=== PATIENT | male | born 1995 | race Caucasian/White ===

== ENCOUNTER 2023-11-22 06:55 | Inpatient (IN) | payer MEDICARE, OTHER ==
[2023-11-22] MEDS ORDERED: LORazepam 1 MG TAB PO PRN ×3 (07:07)
[2023-11-22] MEDS ORDERED: LORazepam 0.5 MG TAB PO PRN (07:07)
[2023-11-22] MEDS: SODIUM CHLORIDE 0.9% 1,000 ML IV ONE (07:12)
[2023-11-22 07:14] LABS: Basophils # (A) 0.1 k/uL (0-0.2); Basophils % (A) 1 %; Eosinophils # (A) 0.2 k/uL (0-0.7); Eosinophils % (A) 2 %; HCT 39.3 % (39.0-53.0); HGB 13.8 gm/dL (13.0-17.5); Lymphocytes # (A) 1.8 k/uL (1.0-4.8); Lymphocytes % (A) 22 %; MCH 31.6 pg (25.0-35.0); MCHC 35.1 g/dL (31.0-37.0); MCV 89.9 fL (80.0-100.0); Mean Platelet Volume 7.2; Monocytes # (A) 0.7 k/uL (0-1.0); Monocytes % (A) 8 %; Neutrophils # (A) 5.5 k/uL (1.3-7.7); Neutrophils % (A) 65 %; Platelet Count 276 k/uL (150-450); RBC 4.37 m/uL (4.30-5.90); RDW 12.1 % (11.5-15.5); WBC 8.3 k/uL (3.8-10.6)
[2023-11-22 07:34] LABS: ALT 68 U/L (4-49); AST 76 U/L (17-59); African American GFR (CKD) >90 (>60 ml/min/1.73 sqM); Albumin 4.8 g/dL (3.5-5.0); Alkaline Phosphatase 76 U/L (38-126); Anion Gap 8 mmol/L; Blood Urea Nitrogen 14 mg/dL (9-20); Calcium 9.8 mg/dL (8.4-10.2); Carbon Dioxide 23 mmol/L (22-30); Chloride 104 mmol/L (98-107); Glucose 94 mg/dL (74-99); Lipase 220 U/L (23-300); Non-African American GFR(CKD) >90 (>60 ml/min/1.73 sqM); Potassium 3.9 mmol/L (3.5-5.1); Sodium 135 mmol/L (137-145); Total Bilirubin 0.8 mg/dL (0.2-1.3); Total Protein 7.7 g/dL (6.3-8.2)
--- NOTE | 2023-11-22 07:39 | ED ---
Alcohol HPI - General Source: patient, EMS, RN notes reviewed Mode of arrival: EMS Limitations: no limitations <Goldy Curiel - Last Filed: 11/22/23 12:36> <Zuleyma Neff - Last Filed: 11/22/23 23:29> - General Chief Complaint: Alcohol Stated Complaint: detox Time Seen by Provider: 11/22/23 06:57 - History of Present Illness Initial Comments: 28-year-old male presents emergency department from [facility] for alcohol withdrawal. Patient states that he has been there for 2 days he states he started him on Ativan yesterday when she states helped minimally. Patient states he is nauseated and having some hallucinations he recently started seeing things, hearing voices. Patient patient states he has been having some shaking episodes which seem to be worsening.. Patient denies any chest pain shortness of breath fevers chills nausea vomiting currently. He has had some intermittent nausea. Patient denies any history of seizures. (Goldy Curiel) - Related Data Home Medications Medication Instructions Recorded Confirmed Acetaminophen [Tylenol] 650 mg PO Q4H PRN 11/22/23 11/22/23 Calcium/Magnesium/Zinc/Vitamin D 1 tab PO TID PRN 11/22/23 11/22/23 334/134/5mg Cariprazine HCl [Vraylar] 3 mg PO DAILY 11/22/23 11/22/23 Chlorpheniramine Maleate 4 mg PO Q4H PRN 11/22/23 11/22/23 [Chlor-Trimeton] Dicyclomine [Bentyl] 20 mg PO TID PRN 11/22/23 11/22/23 Hyoscyamine Sulfate [Levsin] 0.125 mg PO QID PRN 11/22/23 11/22/23 LORazepam [Ativan] 1 - 2 mg PO Q4H PRN 11/22/23 11/22/23 Loperamide HCl [Imodium A-D] 4 mg PO QID PRN 11/22/23 11/22/23 Mag Hydrox/Aluminum Hyd/Simeth 30 ml PO Q4H PRN 11/22/23 11/22/23 [Mylanta Maximum Strength Liq] Magnesium Hydroxide [Milk of 2,400 mg PO BID PRN 11/22/23 11/22/23 Magnesia] Melatonin 5 mg PO HS 11/22/23 11/22/23 Meloxicam [Mobic] 7.5 - 15 mg PO DAILY PRN 11/22/23 11/22/23 Mirtazapine [Remeron] 15 mg PO HS 11/22/23 11/22/23 Multivitamins, Thera [Multivitamin 1 tab PO DAILY 11/22/23 11/22/23 (formulary)] Pantoprazole [Protonix] 40 mg PO BID 11/22/23 11/22/23 Propranolol [Inderal] 20 mg PO TID PRN 11/22/23 11/22/23 Sertraline [Zoloft] 150 mg PO DAILY 11/22/23 11/22/23 Thiamine [Vitamin B-1] 100 mg PO DAILY 11/22/23 11/22/23 cloNIDine HCL [Catapres] 0.1 - 0.3 mg PO Q4H PRN 11/22/23 11/22/23 guaiFENesin [guaiFENesin Oral 200 mg PO Q4H PRN 11/22/23 11/22/23 Solution] ondansetron HCL [Zofran] 8 mg PO Q6H PRN 11/22/23 11/22/23 Allergies Allergy/AdvReac Type Severity Reaction Status Date / Time onion Allergy Anaphylaxis Verified 11/22/23 17:09 Review of Systems ROS Other: All systems not noted in ROS Statement are negative. <Goldy Curiel - Last Filed: 11/22/23 12:36> ROS Other: All systems not noted in ROS Statement are negative. <Zuleyma Neff - Last Filed: 11/22/23 23:29> ROS Statement: Those systems with pertinent positive or pertinent negative responses have been documented in the HPI. Past Medical History Past Medical History: No Reported History History of Any Multi-Drug Resistant Organisms: None Reported Additional Past Surgical History / Comment(s): Right and left hand surgery Past Psychological History: Anxiety, Depression Smoking Status: Current every day smoker Past Alcohol Use History: Daily, Heavy Past Drug Use History: Cocaine <Goldy Curiel - Last Filed: 11/22/23 12:36> General Exam Limitations: no limitations General appearance: alert, in no apparent distress Head exam: Present: atraumatic, normocephalic, normal inspection Eye exam: Present: normal appearance, PERRL, EOMI. Absent: scleral icterus, conjunctival injection, periorbital swelling ENT exam: Present: normal exam, normal oropharynx, mucous membranes moist Neck exam: Present: normal inspection, full ROM. Absent: tenderness, meningismus, lymphadenopathy Respiratory exam: Present: normal lung sounds bilaterally. Absent: respiratory distress, wheezes, rales, rhonchi, stridor Cardiovascular Exam: Present: regular rate, normal rhythm, normal heart sounds. Absent: systolic murmur, diastolic murmur, rubs, gallop, clicks GI/Abdominal exam: Present: soft, normal bowel sounds. Absent: distended, tenderness, guarding, rebound, rigid Neurological exam: Present: alert, oriented X3 Skin exam: Present: warm, dry, intact, normal color. Absent: rash <Goldy Curiel - Last Filed: 11/22/23 12:36> Course Vital Signs 11/22/23 11/22/23 06:57 08:08 Temperature 98.1 F Pulse Rate 88 86 Respiratory 18 18 Rate Blood Pressure 137/94 138/93 O2 Sat by Pulse 98 98 Oximetry Medical Decision Making - Lab Data Result diagrams: 11/22/23 07:08 11/22/23 07:08 <Goldy Curiel - Last Filed: 11/22/23 12:36> - Lab Data Result diagrams: 11/22/23 07:08 11/22/23 07:08 <Zuleyma Neff - Last Filed: 11/22/23 23:29> - Medical Decision Making Was pt. sent in by a medical professional or institution (, PA, MARKETING SUPPORT COORDINATOR, urgent care, hospital, or residential...) When possible be specific @ -[facility] Did you speak to anyone other than the patient for history (EMS, parent, family, police, friend...)? What history was obtained from this source @ -No Did you review nursing and triage notes (agree or disagree)? Why? @ -I reviewed and agree with nursing and triage notes Were old charts reviewed (outside hosp., previous admission, EMS record, old EKG, old radiological studies, urgent care reports/EKG's, residential records)? Report findings @ -No old charts were reviewed Differential Diagnosis (chest pain, altered mental status, abdominal pain women, abdominal pain men, vaginal bleeding, weakness, fever, dyspnea, syncope, headache, dizziness, GI bleed, back pain, seizure, CVA, palpatations, mental health, musculoskeletal)? @ -Alcohol intoxication, alcohol withdrawal, delirium EKG interpreted by me (3pts min.). @ -[None X-rays interpreted by me (1pt min.). @ -None done CT interpreted by me (1pt min.). @ -None done U/S interpreted by me (1pt. min.). @ -None done What testing was considered but not performed or refused? (CT, X-rays, U/S, labs)? Why? @ -None What meds were considered but not given or refused? Why? @ -None Did you discuss the management of the patient with other professionals (professionals i.e. , PA, MARKETING SUPPORT COORDINATOR, lab, RT, psych nurse, clinical social work aide, ob gyn, teacher, maritime officer, caser in)? Give summary @ -Dr. Baig for admission regarding alcohol withdrawal with delirium. Patient CIWA scale was over 30 and requested to send to ICU Case discussed with Dr. Jacobson Was smoking cessation discussed for >3mins.? @ -No Was critical care preformed (if so, how long)? @ -No Were there social determinants of health that impacted care today? How? (Homelessness, low income, unemployed, alcoholism, drug addiction, transportation, low edu. Level, literacy, decrease access to med. care, long term, rehab)? @ -No Was there de-escalation of care discussed even if they declined (Discuss DNR or withdrawal of care, Hospice)? DNR status @ -No What co-morbidities impacted this encounter? (DM, HTN, Smoking, COPD, CAD, Cancer, CVA, ARF, Chemo, Hep., AIDS, mental health diagnosis, sleep apnea, morbid obesity)? @ -[Alcohol abuse, bipolar disorder Was patient admitted / discharged? Hospital course, mention meds given and route, prescriptions, significant lab abnormalities, going to OR and other pertinent info. @ -Admitted patient been in ICU for close monitoring secondary to elevated CIWA's scale, alcohol withdrawal delirium patient has received over 10 mg of Ativan with minimal improvement of symptoms. Undiagnosed new problem with uncertain prognosis? @ -No Drug Therapy requiring intensive monitoring for toxicity (Heparin, Nitro, Insulin, Cardizem)? @ -No Were any procedures done? @ -No Diagnosis/symptom? @ -Alcohol withdrawal delirium Acute, or Chronic, or Acute on Chronic? @ -Acute Uncomplicated (without systemic symptoms) or Complicated (systemic symptoms)? @ -Complicated Side effects of treatment? @ -No Exacerbation, Progression, or Severe Exacerbation? @ -No Poses a threat to life or bodily function? How? (Chest pain, [place], [place], pneumonia, PE, COPD, DKA, ARF, appy, cholecystitis, CVA, Diverticulitis, Homicidal, Suicidal, threat to staff... and all critical care pts) @ -Yes alcohol withdrawal (Goldy Curiel) - Lab Data Lab Results 11/22/23 11/22/23 Range/Units 07:08 07:08 WBC 8.3 (3.8-10.6) k/uL RBC 4.37 (4.30-5.90) m/uL Hgb 13.8 (13.0-17.5) gm/dL Hct 39.3 (39.0-53.0) % MCV 89.9 (80.0-100.0) fL MCH 31.6 (25.0-35.0) pg MCHC 35.1 (31.0-37.0) g/dL RDW 12.1 (11.5-15.5) % Plt Count 276 (150-450) k/uL MPV 7.2 Neutrophils % 65 % Lymphocytes % 22 % Monocytes % 8 % Eosinophils % 2 % Basophils % 1 % Neutrophils # 5.5 (1.3-7.7) k/uL Lymphocytes # 1.8 (1.0-4.8) k/uL Monocytes # 0.7 (0-1.0) k/uL Eosinophils # 0.2 (0-0.7) k/uL Basophils # 0.1 (0-0.2) k/uL Sodium 135 L (137-145) mmol/L Potassium 3.9 (3.5-5.1) mmol/L Chloride 104 (98-107) mmol/L Carbon Dioxide 23 (22-30) mmol/L Anion Gap 8 mmol/L BUN 14 (9-20) mg/dL Creatinine 1.02 (0.66-1.25) mg/dL Est GFR (CKD-EPI)AfAm >90 (>60 ml/min/1.73 sqM) Est GFR (CKD-EPI)NonAf >90 (>60 ml/min/1.73 sqM) Glucose 94 (74-99) mg/dL Calcium 9.8 (8.4-10.2) mg/dL Magnesium 2.0 (1.6-2.3) mg/dL Total Bilirubin 0.8 (0.2-1.3) mg/dL AST 76 H (17-59) U/L ALT 68 H (4-49) U/L Alkaline Phosphatase 76 (38-126) U/L Total Protein 7.7 (6.3-8.2) g/dL Albumin 4.8 (3.5-5.0) g/dL Lipase 220 (23-300) U/L - EKG Data EKG Comments: EKG performed at 6: 59 sinus rhythm with a rate of 81 [place] 94 QT/QTc 388/426 (Goldy Curiel) Disposition Time of Disposition: 11:08 <Goldy Curiel - Last Filed: 11/22/23 12:36> <Zuleyma Neff - Last Filed: 11/22/23 23:29> Clinical Impression: Alcohol withdrawal delirium, Alcohol withdrawal syndrome, Bipolar disorder Disposition: ADMITTED IP TO THIS HOSP Condition: Serious
[2023-11-22] MEDS: LORazepam 2 MG/ML INJ IV STA ×3 (08:00→13:21)
[2023-11-22] MEDS: THIAMINE 200 MG in SODIUM CHLORIDE 0.9% 100 ML IVPB STA (08:02)
[2023-11-22] MEDS: SODIUM CHLORIDE 0.9% 500 ML 500 ML IV ONE (08:07)
[2023-11-22] MEDS: LORazepam 2 MG/ML INJ IV PRN ×3 (09:03→12:07)
[2023-11-22] MEDS: NICOTINE 14MG/24HR PATCH TRANSDERM STA (10:58)
[2023-11-22] MEDS ORDERED: ONDANSETRON 4 MG/2 ML VIAL IVP PRN (11:08)
[2023-11-22] MEDS ORDERED: NALOXONE 0.4 MG/ML 1 ML VIAL IV PRN (11:08)
[2023-11-22] MEDS: SODIUM CHLORIDE 0.9% 1,000 ML IV SCH (12:10)
--- NOTE | 2023-11-22 13:22 | P.HPIM ---
History of Present Illness H&P Date: 11/22/23 Patient is a 28-year-old male with a history of alcohol dependence presenting for acute alcohol withdrawal. Patient is currently agitated, unable to provide any history. Per report, patient was dropped off by his brother, last drink was approximately 2 days ago. He normally drinks a case of beer and 1/5 of liquor. Unclear if patient is a smoker. Unclear if he uses any other drugs. In the ED, temperature was 98.1, pulse 88, respiratory rate 18, blood pressure 137/94, saturating at 98% on room air. WBC 8.3, hemoglobin 13.8, sodium 135, creatinine 1.02, total bili 0.8, AST 76, ALT 68, lipase 220. EKG shows sinus rhythm with occasional PACs. Patient received a total of 2 L of normal saline, IV thiamine, up to 9 mg of IV Ativan and continues to remain agitated. ICU was consulted. Patient pending transfer to ICU on Precedex drip for delirium tremens. Pertinent positives and negatives as discussed in HPI, a complete review of systems was performed and all other systems are negative. Patient seen and examined at bedside. Vital signs reviewed General: Agitated, pacing around the room, appears at stated age Derm: No obvious rashes Head: atraumatic, normocephalic, symmetric Eyes: EOMI, no lid lag, anicteric sclera ENT: Nose and ears atraumatic Neck: No thyromegaly Mouth: no lip lesion, mucus membranes moist Cardiovascular:no edema Lungs: no accessory muscle use Abdominal: No distention Ext: no gross muscle atrophy, muscle strength muscle strength 5 out of 5 in all 4 extremities, no contractures Neuro: CN II-XII grossly intact Psych: Has delusions and hallucinations Assessment/Plan: Delirium tremens Severe alcohol withdrawal Alcohol dependence Continue IV Ativan as needed per CIWA score ICU consulted due to persistent agitation despite getting multiple doses of IV Ativan Patient started on Precedex drip Also on Librium 50 mg p.o. 3 times daily Continue thiamine oral 100 mg daily Continue telemetry monitoring History of bipolar disorder Unclear if patient is taking any medications at home Psychiatry also consulted GERD Continue home pantoprazole 40 twice daily The patient is admitted with an anticipated greater than 2 midnight stay as inpatient status for evaluation of severe alcohol withdrawal. Surrogate decision-maker: Brother CODE STATUS: Full code DVT prophylaxis: Lovenox Anticipated discharge date: Pending clinical course Anticipated discharge place: Pending clinical course A total of 55 minutes was spent on the care of this complex patient more than 50% of the time was spent in counseling and care coordination. Past Medical History Past Medical History: No Reported History History of Any Multi-Drug Resistant Organisms: None Reported Additional Past Surgical History / Comment(s): Right and left hand surgery Past Psychological History: Anxiety, Depression Smoking Status: Current every day smoker Past Alcohol Use History: Daily, Heavy Past Drug Use History: Cocaine Medications and Allergies Home Medications Medication Instructions Recorded Confirmed Type Acetaminophen [Tylenol] 650 mg PO Q4H PRN 11/22/23 11/22/23 History Calcium/Magnesium/Zinc/Vitamin D 1 tab PO TID PRN 11/22/23 11/22/23 History 334/134/5mg Cariprazine HCl [Vraylar] 3 mg PO DAILY 11/22/23 11/22/23 History Chlorpheniramine Maleate 4 mg PO Q4H PRN 11/22/23 11/22/23 History [Chlor-Trimeton] Dicyclomine [Bentyl] 20 mg PO TID PRN 11/22/23 11/22/23 History Hyoscyamine Sulfate [Levsin] 0.125 mg PO QID PRN 11/22/23 11/22/23 History LORazepam [Ativan] 1 - 2 mg PO Q4H PRN 11/22/23 11/22/23 History Loperamide HCl [Imodium A-D] 4 mg PO QID PRN 11/22/23 11/22/23 History Mag Hydrox/Aluminum Hyd/Simeth 30 ml PO Q4H PRN 11/22/23 11/22/23 History [Mylanta Maximum Strength Liq] Magnesium Hydroxide [Milk of 2,400 mg PO BID PRN 11/22/23 11/22/23 History Magnesia] Melatonin 5 mg PO HS 11/22/23 11/22/23 History Meloxicam [Mobic] 7.5 - 15 mg PO DAILY PRN 11/22/23 11/22/23 History Mirtazapine [Remeron] 15 mg PO HS 11/22/23 11/22/23 History Multivitamins, Thera [Multivitamin 1 tab PO DAILY 11/22/23 11/22/23 History (formulary)] Pantoprazole [Protonix] 40 mg PO BID 11/22/23 11/22/23 History Propranolol [Inderal] 20 mg PO TID PRN 11/22/23 11/22/23 History Sertraline [Zoloft] 150 mg PO DAILY 11/22/23 11/22/23 History Thiamine [Vitamin B-1] 100 mg PO DAILY 11/22/23 11/22/23 History cloNIDine HCL [Catapres] 0.1 - 0.3 mg PO Q4H PRN 11/22/23 11/22/23 History guaiFENesin [guaiFENesin Oral 200 mg PO Q4H PRN 11/22/23 11/22/23 History Solution] ondansetron HCL [Zofran] 8 mg PO Q6H PRN 11/22/23 11/22/23 History Allergies Allergy/AdvReac Type Severity Reaction Status Date / Time onion Allergy Unknown Verified 11/22/23 12:37 Physical Exam Vitals: Vital Signs Temp Pulse Resp BP Pulse Ox 11/22/23 08:08 86 18 138/93 98 11/22/23 06:57 98.1 F 88 18 137/94 98 Intake and Output 11/21/23 11/22/23 11/22/23 22:59 06:59 14:59 Other: Weight 75.75 kg Results CBC & Chem 7: 11/22/23 07:08 11/22/23 07:08 Labs: Abnormal Lab Results - Last 24 Hours (Table) 11/22/23 Range/Units 07:08 Sodium 135 L (137-145) mmol/L AST 76 H (17-59) U/L ALT 68 H (4-49) U/L
[2023-11-22] MEDS: DEXMEDETOMIDINE/0.9% NACL(PMX) 400 MCG in EMPTY BAG 1 BAG IV SCH (14:19)
[2023-11-22 14:21] LABS: Glucose,Whole Blood 96 mg/dL (70-110)
--- NOTE | 2023-11-22 14:32 | P.CN ---
Psychiatric Consult - . Consult date: 11/22/23 Consult:: 11/22/23 14:00 IDENTIFYING DATA: This patient is a 28-year-old male REASON FOR REFERRAL: Psychiatry was consulted for bipolar disorder HISTORY OF PRESENT ILLNESS: The patient presented to the hospital with altered mental status due to alcohol withdrawal. Patient is A&Ox1 to self and was seen in the ED today, with security compliance specialist nearby. He is responding to internal stimuli. He derails often during con versation and describes numerous bizarre delusions. He displays psychomotor agitation but is able to be redirected verbally. Patient states that his mood has been "terrible "due to battling with family and having numerous interpersonal issues. He says he has mainly been coping by drinking 2-3 cases of beer daily and sometimes a fifth of liquor in addition. His last drink was reportedly 2 days ago. He was brought in from [place] where he had gone to rehab to try to get help. Patient also endorses difficulty sleeping and says he has been only sleeping 2 hours over the past 2 months. He endorses poor appetite and low energy. He states that he has been compliant on all of his psychotropic medications and is able to recall the names. Patient denies suicidal ideation, homicidal ideation, intent or plan. He denies using other substances apart from alcohol recently but describes a history of using numerous other substances. Patient is currently elevated and further interview could not be conducted due to level of delirium. Discussed patient's case with his nurse. Nurses states that his brother was present earlier today and petition the patient. Petition reads "seeing and hearing things constantly looking for things that aren't there. Doesn't know that he is in the hospital at times and has to be reminded ". PAST PSYCHIATRIC HISTORY: Patient reports following up with [facility] for his psychiatric care. He denies history of suicide attempts or hospitalizations. Patient is currently on Vraylar 3mg daily, Remeron 15 mg qHS, and Zoloft 100 mg daily outpatient. PAST MEDICAL HISTORY: Past Medical History: No Reported History History of Any Multi-Drug Resistant Organisms: None Reported Additional Past Surgical History / Comment(s): Right and left hand surgery Past Psychological History: Anxiety, Depression Smoking Status: Current every day smoker Past Alcohol Use History: Daily, Heavy Past Drug Use History: Cocaine ALLERGIES: as per EMR. CHEMICAL DEPENDENCY HISTORY: Patient endorses a history of having experimented with ecstasy, mushrooms, cocaine, and LSD. He states that he last used is over 2 years ago. Per chart history from [facility], patient began drinking alcohol at the age of 24. He also has a history of cannabis use that began when he was 14 years old. He has been using cannabis recently. Patient is also a smoker FAMILY PSYCHIATRIC/SUBSTANCE USE HISTORY: denies SOCIAL HISTORY: Unable to obtain at this time MENTAL STATUS EXAM: General Appearance: Patient appears to be stated age is alert, uncooperative. Patient appears to have poor hygiene and grooming wearing hospital gown with good eye contact. Malodorous. Numerous piercings Behavior: Psychomotor agitation with numerous attempts at trying to leave his room Speech: Patient's speech is fluent and nonpressured. Mood/Affect: Patient reports their mood is "terrible", affect is elevated Suicidality/Homicidality: Patient denies having any suicidal or homicidal ideation intent or plan. Perceptions: Patient is seen responding to internal stimuli Though content/process: Numerous bizarre delusions Memory and concentration: AOX1, poor Judgment and insight: Poor, impulsive IMPRESSIONS: Delirium tremens secondary to alcohol withdrawal Alcohol use disorder, severe, currently in acute withdrawal Cannabis use disorder, severe Tobacco use disorder Bipolar disorder, per history Generalized anxiety disorder, per history Hx ADHD PLAN: -Will need to assess need for inpatient psychiatric admission upon medical stabilization. -Patient DOES NOT have decision making capacity at this time and is unable to reason through and communicate/appreciate the risks, benefits and alternatives to treatment. -Medical stabilization for alcohol withdrawal per primary team. Agree with transfer to ICU. Recent CIWA was 30 -Would recommend the following medication changes/additions: Consider Depakote for mood stabilization and delirium augmentation but not start ed due to current hepatic impairment Resume Vraylar 3 mg daily Resume Remeron 15 mg qHS for sleep, mood, appetite Hold Zoloft at this time due to risk of potentiating agitation -CIWA protocol with PRN Ativan for alcohol withdrawal. Continue to monitor vital signs. On thiamin replacement -Continue sitter for safety -footwear factory worker to provide patient with outpatient mental health/psychiatry resources for appropriate follow up upon discharge -Will discuss substance abuse further once patient is medically stabilized -footwear factory worker to provide patient substance use treatment resources including AA/NA meetings in the community. -Communicated plan to patient's nurse -Psychiatry will continue to follow along and will reassess for potential need for psychiatric hospitalization after delirium has resolved -Please contact with any questions.
[2023-11-22] MEDS: Cariprazine Hcl [Vraylar] 3 MG Capsule PO SCH (15:30)
[2023-11-22] MEDS: chlordiazePOXIDE 25 MG CAP PO SCH (15:31)
[2023-11-22] MEDS ORDERED: DIVALPROEX 500 MG TABLET.DR PO SCH (21:00)
[2023-11-22] MEDS: MIRTAZAPINE 15 MG TAB PO SCH (22:03)
[2023-11-22] MEDS: PANTOPRAZOLE 40 MG TABLET PO SCH (22:03)
--- NOTE | 2023-11-23 02:08 | P.CNPUL ---
History of Present Illness Consult date: 11/23/23 Requesting physician: Goldy Curiel Reason for consult: other (Alcohol withdrawal delirium tremens; ICU management) Chief complaint: Transfer from [place] History of present illness: I am seeing this patient in consultation today 11/23/2023 in the intensive care unit after he was transferred from [facility] facility for acute alcohol withdrawal. Patient is a 28-year-old white male with past medical history significant for alcoholism. He reportedly drinks 2 cases of beer and o ccasionally 1/5 of liquor per day. He was reportedly at [facility] facility for 2 days, when he started to develop withdrawal symptoms. He was having hallucinations. He was sent into the emergency room yesterday, and received multiple doses of Ativan. I am told he received 12 mg of Ativan total. He was then started on a Precedex infusion, admitted to the intensive care unit. He is currently resting in bed, on room air, in no acute distress. Precedex was paused yesterday at 2200. He continues on Librium 3 times daily and Ativan per CIWA protocol. Last recorded CIWA score was 4. He is alert and able to answer most of my questions. No reported seizures or history of alcohol withdrawal seizures. Patient denies any hematemesis or bloody bowel movements. No reported abdominal pain. States he had an EGD a couple months ago, and "everything was fine". Denies history of esophageal varices. CBC and BMP from yesterday were unremarkable. LFTs were mildly elevated with an AST of 76, ALT of 68, and ALP of 76. Lipase 220. Normal saline is infusing at 75 mL/h. Vital signs are stable. Review of Systems REVIEW OF SYSTEMS: CONSTITUTIONAL: Denies any recent significant weight loss or weight gain. EYES: Denies change in vision. EARS, NOSE, MOUTH, THROAT: Denies headaches, denies sore throat. CARDIOVASCULAR: Denies chest pain, palpitations or syncopal episodes. RESPIRATORY: Denies shortness of breath, cough, congestion or hemoptysis. GASTROINTESTINAL: Denies change in appetite, abdominal pain, or diarrhea. Admits previous nausea and vomiting, none currently. GENITOURINARY: Denies hematuria, denies infections. MUSKULOSKELETAL: Denies pain, denies swelling. INTEGUMENTARY: Denies rash, denies eczema. NEUROLOGICAL: Denies recent memory loss, no recent seizure activity. PSYCHIATRIC: Denies anxiety, denies depression. 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 [facility] 08/2023 History of Any Multi-Drug Resistant Organisms: None Reported Additional Past Surgical History / Comment(s): Right and left hand surgery Past Anesthesia/Blood Transfusion Reactions: Unable to Obtain Additional Past Anesthesia/Blood Transfusion Reaction / Comment(s): history from pt's brother Rolando, pt confused, poor historian at this time, Rolando is unsure Smoking Status: Current every day smoker - Past Family History Father History Unknown: Yes Medications and Allergies Home Medications Medication Instructions Recorded Confirmed Type Acetaminophen [Tylenol] 650 mg PO Q4H PRN 11/22/23 11/22/23 History Calcium/Magnesium/Zinc/Vitamin D 1 tab PO TID PRN 11/22/23 11/22/23 History 334/134/5mg Cariprazine HCl [Vraylar] 3 mg PO DAILY 11/22/23 11/22/23 History Chlorpheniramine Maleate 4 mg PO Q4H PRN 11/22/23 11/22/23 History [Chlor-Trimeton] Dicyclomine [Bentyl] 20 mg PO TID PRN 11/22/23 11/22/23 History Hyoscyamine Sulfate [Levsin] 0.125 mg PO QID PRN 11/22/23 11/22/23 History LORazepam [Ativan] 1 - 2 mg PO Q4H PRN 11/22/23 11/22/23 History Loperamide HCl [Imodium A-D] 4 mg PO QID PRN 11/22/23 11/22/23 History Mag Hydrox/Aluminum Hyd/Simeth 30 ml PO Q4H PRN 11/22/23 11/22/23 History [Mylanta Maximum Strength Liq] Magnesium Hydroxide [Milk of 2,400 mg PO BID PRN 11/22/23 11/22/23 History Magnesia] Melatonin 5 mg PO HS 11/22/23 11/22/23 History Meloxicam [Mobic] 7.5 - 15 mg PO DAILY PRN 11/22/23 11/22/23 History Mirtazapine [Remeron] 15 mg PO HS 11/22/23 11/22/23 History Multivitamins, Thera [Multivitamin 1 tab PO DAILY 11/22/23 11/22/23 History (formulary)] Pantoprazole [Protonix] 40 mg PO BID 11/22/23 11/22/23 History Propranolol [Inderal] 20 mg PO TID PRN 11/22/23 11/22/23 History Sertraline [Zoloft] 150 mg PO DAILY 11/22/23 11/22/23 History Thiamine [Vitamin B-1] 100 mg PO DAILY 11/22/23 11/22/23 History cloNIDine HCL [Catapres] 0.1 - 0.3 mg PO Q4H PRN 11/22/23 11/22/23 History guaiFENesin [guaiFENesin Oral 200 mg PO Q4H PRN 11/22/23 11/22/23 History Solution] ondansetron HCL [Zofran] 8 mg PO Q6H PRN 11/22/23 11/22/23 History Allergies Allergy/AdvReac Type Severity Reaction Status Date / Time onion Allergy Anaphylaxis Verified 11/22/23 17:09 Physical Exam Vitals: Vital Signs Temp Pulse Resp BP Pulse Ox 11/22/23 23:30 66 15 102/61 99 11/22/23 23:00 54 L 17 88/56 98 11/22/23 22:30 46 L 16 96/64 98 11/22/23 22:00 46 L 16 95/59 99 11/22/23 21:30 41 L 10 L 95/71 98 11/22/23 21:00 44 L 16 93/65 99 11/22/23 20:30 48 L 16 94/64 99 11/22/23 20:00 47 L 18 100/65 98 11/22/23 19:30 97.5 F L 50 L 18 97/65 98 11/22/23 19:00 53 L 20 103/69 98 11/22/23 18:30 53 L 20 102/71 98 11/22/23 18:00 53 L 20 106/68 98 11/22/23 17:30 57 L 18 99/72 98 11/22/23 17:00 52 L 19 101/79 98 11/22/23 16:30 52 L 20 104/72 97 11/22/23 16:00 98.9 F 56 L 19 111/76 96 11/22/23 15:30 81 18 111/76 97 11/22/23 15:00 98.8 F 73 20 123/78 98 11/22/23 14:30 102 H 18 126/87 11/22/23 08:08 86 18 138/93 98 11/22/23 06:57 98.1 F 88 18 137/94 98 Intake and Output 11/22/23 11/22/23 11/23/23 14:59 22:59 06:59 Intake Total 2.43 530.421 Output Total 0 0 Balance 2.43 530.421 Intake: Intake, IV Titration 2.43 530.421 Amount Dexmedetomidine/0.9% NaCl 2.43 80.421 (Pmx) 400 mcg In Empty Bag 1 bag @ 0.2 MCG/KG/HR 3.788 mls/hr IV .Q24H [facility] Rx#:[id number] Sodium Chloride 0.9% 1, 450 000 ml @ 75 mls/hr IV . [id number] [facility] Rx#:[id number] Output: Urine 0 0 Other: Weight 75.75 kg GENERAL EXAM: Alert, 28-year-old white male, fairly comfortable in no apparent distress. HEAD: Normocephalic and atraumatic EYES: Normal reaction of pupils, equal size. NOSE: Clear with pink turbinates. THROAT: No erythema or exudates. NECK: No masses, no JVD. CHEST: No chest wall deformity. LUNGS: Equal air entry with no crackles, wheeze, rhonchi or dullness. On room air. No conversational dyspnea or accessory muscle use.. CVS: S1 and S2 normal with no audible murmur, regular rhythm. No extra heart sounds ABDOMEN: No hepatosplenomegaly, active bowel sounds, no guarding or rigidity. SPINE: No scoliosis or deformity SKIN: No rashes CENTRAL NERVOUS SYSTEM: No focal deficits, tone is normal in all 4 extremities. EXTREMITIES: There is no peripheral edema, clubbing, or cyanosis. Peripheral pulses are intact. Results - Laboratory Findings CBC and BMP: 11/22/23 07:08 11/22/23 07:08 Abnormal lab findings: Abnormal Labs 11/22/23 07:08 Sodium 135 L AST 76 H ALT 68 H Assessment and Plan Assessment: Acute alcohol withdrawal delirium tremens, requiring admission to the ICU and briefly on Precedex infusion. Precedex is currently paused, and the patient continues on the CIWA protocol. Alcoholism Sinus bradycardia Tobacco dependence History of anxiety/depression History of bipolar disorder Plan: Patient's medications, labs, chest x-ray reviewed Precedex is currently on hold since 2200 yesterday. Continue CIWA protocol. Last reported CIWA score 4. Continue vitamin B1 replacement Protonix for GI prophylaxis Continue seizure precautions Currently being evaluated by inpatient psychiatry Patient will be monitored in the intensive care unit at least overnight. I have personally seen and examined the patient, performed the documentation and the assessment and plan as written. Number of minutes spent on the visit:20 Time with Patient: Greater than 30
[2023-11-23] MEDS: MORPHINE SULFATE 2 MG/ML SYRINGE IVP STA (03:01)
[2023-11-23 04:25] LABS: Basophils % (A) 1 %; Eosinophils # (A) 0.1 k/uL (0-0.7); Eosinophils % (A) 3 %; HCT 34.7 % (39.0-53.0); HGB 12.5 gm/dL (13.0-17.5); Lymphocytes # (A) 1.9 k/uL (1.0-4.8); Lymphocytes % (A) 36 %; MCH 33.3 pg (25.0-35.0); MCHC 36.1 g/dL (31.0-37.0); MCV 92.2 fL (80.0-100.0); Mean Platelet Volume 7.5; Monocytes # (A) 0.4 k/uL (0-1.0); Monocytes % (A) 8 %; Neutrophils # (A) 2.7 k/uL (1.3-7.7); Neutrophils % (A) 51 %; Platelet Count 204 k/uL (150-450); RBC 3.76 m/uL (4.30-5.90); RDW 12.1 % (11.5-15.5); WBC 5.3 k/uL (3.8-10.6)
[2023-11-23 04:38] LABS: African American GFR (CKD) >90 (>60 ml/min/1.73 sqM); Anion Gap 3 mmol/L; Blood Urea Nitrogen 11 mg/dL (9-20); Carbon Dioxide 26 mmol/L (22-30); Chloride 111 mmol/L (98-107); Glucose 91 mg/dL (74-99); Non-African American GFR(CKD) >90 (>60 ml/min/1.73 sqM); Potassium 3.9 mmol/L (3.5-5.1); Sodium 140 mmol/L (137-145)
[2023-11-23] MEDS: ACETAMINOPHEN TAB 325 MG TAB PO PRN (07:02)
[2023-11-23] MEDS: LORazepam 2 MG/ML INJ IV PRN (08:47)
[2023-11-23] MEDS: THIAMINE 100 MG TAB PO SCH (08:50)
[2023-11-23] MEDS: MULTIVITAMINS, THERA 1 EACH TAB PO SCH (08:51)
[2023-11-23] MEDS: ENOXAPARIN 40 MG/0.4 ML SYRINGE SQ SCH (08:52)
[2023-11-23] MEDS: clonazePAM 1 MG TAB PO SCH (09:50)
[2023-11-23] MEDS: SERTRALINE 100 MG TAB PO SCH (09:51)
[2023-11-23] MEDS ORDERED: IBUPROFEN 400 MG TAB PO PRN (10:07)
--- NOTE | 2023-11-23 10:09 | P.PN ---
Subjective Progress Note Date: 11/23/23 Patient continues to have anxiety today, however, overall his alcohol withdrawal is much better controlled. Notably, patient has been on standing Klonopin up to 4 mg daily according to the patient and likely is having a component of withdrawal from this as well. He complains of intermittent neck pain which has been going on for years, received a dose of morphine 2 mg last night for this and otherwise has Tylenol as needed. Gen: In NAD, non-toxic HEENT: normocephalic, atraumatic, hearing acuity is intant, mucous membranes moist CVS: perfusing all extremities well, no pitting edema, Respiratory: symmetric chest expansion, no accessory muscle use, GI: soft, NTTP, ND, : no suprapubic tenderness, no CVA tenderness MSK/Derm: no rashes, cyanosis Neuro: CN II-XII intact, no motor weakness, right upper extremity tremulousness Psych: cooperative, euthymic mood, judgment and insight is intact Hospital course: Patient is a 28-year-old male with a history of alcohol dependence presenting for acute alcohol withdrawal. In the ED, temperature was 98.1, pulse 88, respiratory rate 18, blood pressure 137/94, saturating at 98% on room air. WBC 8.3, hemoglobin 13.8, sodium 135, creatinine 1.02, total bili 0.8, AST 76, ALT 68, lipase 220. EKG shows sinus rhythm with occasional PACs. Patient received a total of 2 L of normal saline, IV thiamine, up to 9 mg of IV Ativan and continues to remain agitated. ICU was consulted. Patient transferred to ICU on Precedex drip for delirium tremens. Precedex drip was weaned off. Patient's withdrawal is controlled with standing Librium and Ativan as needed. For patient's pain control we added ibuprofen and recommended continuing Tylenol, avoid narcotics. Assessment/Plan: Delirium tremens Severe alcohol withdrawal Alcohol dependence Continue IV Ativan as needed per CIWA score ICU consulted due to persistent agitation despite getting multiple doses of IV Ativan We will taper Librium to 25 mg 4 times daily today Continue thiamine oral 100 mg daily Continue telemetry monitoring History of bipolar disorder History of PTSD Psychiatry also consulted, appreciate recommendations Neck pain -Tylenol as needed -Ibuprofen as needed -Heat pads GERD Continue home pantoprazole 40 twice daily The patient is admitted with an anticipated greater than 2 midnight stay as inpatient status for evaluation of severe alcohol withdrawal. Surrogate decision-maker: Brother CODE STATUS: Full code DVT prophylaxis: Lovenox Anticipated discharge date: Pending clinical course Anticipated discharge place: Pending clinical course Objective - Vital Signs Vital signs: Vital Signs Temp 98.2 F 11/23/23 08:00 Pulse 73 11/23/23 09:00 Resp 14 11/23/23 09:00 BP 105/69 11/23/23 09:00 Pulse Ox 98 11/23/23 09:00 FiO2 Intake & Output 11/22/23 11/23/23 11/23/23 18:59 06:59 18:59 Intake Total 055.743 8265.428 500 Output Total 0 1000 1525 Balance 355.423 392.428 -1025 Weight 75.75 kg 79.6 kg Intake: Intake, IV Titration 509.171 9450.428 300 Amount Dexmedetomidine/0.9% NaCl 55.423 27.428 (Pmx) 400 mcg In Empty Bag 1 bag @ 0.2 MCG/KG/HR 3.788 mls/hr IV .Q24H [facility] Rx#:[id number] Sodium Chloride 0.9% 1, 300 825 300 000 ml @ 75 mls/hr IV . [id number] [facility] Rx#:[id number] Sodium Chloride 0.9% 500 540 ml 500 ml @ 999 mls/hr IV .Q31M ONE Rx#:[id number] Oral 200 Output: Urine 0 1000 1525 Other: # Voids 1 1 - Labs CBC & Chem 7: 11/23/23 04:12 11/23/23 04:12 Labs: Abnormal Lab Results - Last 24 Hours (Table) 11/23/23 11/23/23 Range/Units 04:12 04:12 RBC 3.76 L (4.30-5.90) m/uL Hgb 12.5 L (13.0-17.5) gm/dL Hct 34.7 L (39.0-53.0) % Chloride 111 H (98-107) mmol/L
--- NOTE | 2023-11-23 13:58 | P.CNPUL ---
History of Present Illness Consult date: 11/23/23 Chief complaint: alcohol withdrawl History of present illness: This is [id number] male patient with known history ofAlcoholism and chronicBenzodiazepine dependence as the patient has been taking Klonopin on outpatient basis 2 mg twice a day.The brain patientPatient drinks2 cases of beer and 1/5 of liquor on a daily basis. [facility]. Based on that, the patient was brought into our hospital. He got moved to the intensive care unit as the patient has received a total of 12 mg of Ativan total. Overnight, the patient was started on Precedex dripTo control his agitation and restlessness. Subsequently,The coat finisher hours, the Precedex has been discontinued.The patient was given additional dose of 2 mg ofAtivan. Time of my evaluation, the patient seems to be calm and comfortable without having any significant agitation or restlessness.The patient was clinically stable and hemodynamically stable. The white cell count of 5.3 with a hemoglobin 12.5 and a platelet of 204.BUN 11 creatinine 0.9 and sodium levels at 140. No reported aspiration. No respiratory distress. No chest pain. Pulse ox 95% tOn room air oxygen. The patient also is having some benzodiazepine withdrawals. Is chronically depressed and he is taking a combination of Zoloft,Number onAnd Vraylar on outpatient basis. Psychiatric consultationHas been also requested. The patient remains in the intensive care unit. I am going to start him onKlonopin 1 mg twice a day. Review of Systems CONSTITUTIONAL: Denies any recent significant weight loss or weight gain. EYES: Denies change in vision. EARS, NOSE, MOUTH, THROAT: Denies headaches, denies sore throat. CARDIOVASCULAR: Denies chest pain, palpitations or syncopal episodes. RESPIRATORY: Denies shortness of breath, cough, congestion or hemoptysis. GASTROINTESTINAL: Denies change in appetite, abdominal pain, or diarrhea. Admits previous nausea and vomiting, none currently. GENITOURINARY: Denies hematuria, denies infections. MUSKULOSKELETAL: Denies pain, denies swelling. INTEGUMENTARY: Denies rash, denies eczema. NEUROLOGICAL: Denies recent memory loss, no recent seizure activity. PSYCHIATRIC: Denies anxiety, denies depression. 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 [facility] 08/2023 History of Any Multi-Drug Resistant Organisms: None Reported Additional Past Surgical History / Comment(s): Right and left hand surgery Past Anesthesia/Blood Transfusion Reactions: Unable to Obtain Additional Past Anesthesia/Blood Transfusion Reaction / Comment(s): history from pt's brother Rolando, pt confused, poor historian at this time, Rolando is unsure Smoking Status: Current every day smoker - Past Family History Father History Unknown: Yes Medications and Allergies Home Medications Medication Instructions Recorded Confirmed Type Acetaminophen [Tylenol] 650 mg PO Q4H PRN 11/22/23 11/22/23 History Calcium/Magnesium/Zinc/Vitamin D 1 tab PO TID PRN 11/22/23 11/22/23 History 334/134/5mg Cariprazine HCl [Vraylar] 3 mg PO DAILY 11/22/23 11/22/23 History Chlorpheniramine Maleate 4 mg PO Q4H PRN 11/22/23 11/22/23 History [Chlor-Trimeton] Dicyclomine [Bentyl] 20 mg PO TID PRN 11/22/23 11/22/23 History Hyoscyamine Sulfate [Levsin] 0.125 mg PO QID PRN 11/22/23 11/22/23 History LORazepam [Ativan] 1 - 2 mg PO Q4H PRN 11/22/23 11/22/23 History Loperamide HCl [Imodium A-D] 4 mg PO QID PRN 11/22/23 11/22/23 History Mag Hydrox/Aluminum Hyd/Simeth 30 ml PO Q4H PRN 11/22/23 11/22/23 History [Mylanta Maximum Strength Liq] Magnesium Hydroxide [Milk of 2,400 mg PO BID PRN 11/22/23 11/22/23 History Magnesia] Melatonin 5 mg PO HS 11/22/23 11/22/23 History Meloxicam [Mobic] 7.5 - 15 mg PO DAILY PRN 11/22/23 11/22/23 History Mirtazapine [Remeron] 15 mg PO HS 11/22/23 11/22/23 History Multivitamins, Thera [Multivitamin 1 tab PO DAILY 11/22/23 11/22/23 History (formulary)] Pantoprazole [Protonix] 40 mg PO BID 11/22/23 11/22/23 History Propranolol [Inderal] 20 mg PO TID PRN 11/22/23 11/22/23 History Sertraline [Zoloft] 150 mg PO DAILY 11/22/23 11/22/23 History Thiamine [Vitamin B-1] 100 mg PO DAILY 11/22/23 11/22/23 History cloNIDine HCL [Catapres] 0.1 - 0.3 mg PO Q4H PRN 11/22/23 11/22/23 History guaiFENesin [guaiFENesin Oral 200 mg PO Q4H PRN 11/22/23 11/22/23 History Solution] ondansetron HCL [Zofran] 8 mg PO Q6H PRN 11/22/23 11/22/23 History Allergies Allergy/AdvReac Type Severity Reaction Status Date / Time onion Allergy Anaphylaxis Verified 11/22/23 17:09 Physical Exam Vitals: Vital Signs Temp Pulse Resp BP Pulse Ox 11/23/23 09:00 73 14 105/69 98 11/23/23 08:30 74 15 120/78 100 11/23/23 08:00 98.2 F 87 23 111/86 98 11/23/23 07:30 84 16 132/87 99 11/23/23 07:00 87 17 121/92 99 11/23/23 06:30 61 17 129/67 97 11/23/23 06:00 71 14 96/77 99 11/23/23 05:30 52 L 17 110/79 98 11/23/23 05:00 71 12 114/83 99 11/23/23 04:30 73 15 107/67 99 11/23/23 04:00 51 L 15 113/64 99 11/23/23 03:30 49 L 12 109/66 99 11/23/23 03:00 66 10 L 105/56 99 11/23/23 02:30 48 L 17 114/74 98 11/23/23 02:00 66 12 85/69 99 11/23/23 01:30 67 18 95/63 100 11/23/23 01:00 50 L 18 103/56 99 11/23/23 00:30 51 L 15 97/59 99 11/23/23 00:00 97.7 F 42 L 12 102/67 99 11/22/23 23:34 61 17 102/67 98 11/22/23 23:30 66 15 102/61 99 11/22/23 23:00 54 L 17 88/56 98 11/22/23 22:30 46 L 16 96/64 98 11/22/23 22:00 46 L 16 95/59 99 11/22/23 21:30 41 L 10 L 95/71 98 11/22/23 21:00 44 L 16 93/65 99 11/22/23 20:30 48 L 16 94/64 99 11/22/23 20:00 47 L 18 100/65 98 11/22/23 19:30 97.5 F L 50 L 18 97/65 98 11/22/23 19:00 53 L 20 103/69 98 11/22/23 18:30 53 L 20 102/71 98 11/22/23 18:00 53 L 20 106/68 98 11/22/23 17:30 57 L 18 99/72 98 11/22/23 17:00 52 L 19 101/79 98 11/22/23 16:30 52 L 20 104/72 97 11/22/23 16:00 98.9 F 56 L 19 111/76 96 11/22/23 15:30 81 18 111/76 97 11/22/23 15:00 98.8 F 73 20 123/78 98 11/22/23 14:30 102 H 18 126/87 Intake and Output 11/22/23 11/23/23 11/23/23 22:59 06:59 14:59 Intake Total 720.014 0285 425 Output Total 0 1000 1025 Balance 605.421 140 -600 Intake: Intake, IV Titration 675.256 8638 225 Amount Dexmedetomidine/0.9% NaCl 80.421 (Pmx) 400 mcg In Empty Bag 1 bag @ 0.2 MCG/KG/HR 3.788 mls/hr IV .Q24H [facility] Rx#:[id number] Sodium Chloride 0.9% 1, 525 600 225 000 ml @ 75 mls/hr IV . [id number] [facility] Rx#:[id number] Sodium Chloride 0.9% 500 540 ml 500 ml @ 999 mls/hr IV .Q31M ONE Rx#:[id number] Oral 200 Output: Urine 0 1000 1025 Other: # Voids 1 1 Weight 79.6 kg GENERAL EXAM: Alert, 28-year-old white male, fairly comfortable in no apparent distress. HEAD: Normocephalic and atraumatic EYES: Normal reaction of pupils, equal size. NOSE: Clear with pink turbinates. THROAT: No erythema or exudates. NECK: No masses, no JVD. CHEST: No chest wall deformity. LUNGS: Equal air entry with no crackles, wheeze, rhonchi or dullness. On room air. No conversational dyspnea or accessory muscle use.. CVS: S1 and S2 normal with no audible murmur, regular rhythm. No extra heart sounds ABDOMEN: No hepatosplenomegaly, active bowel sounds, no guarding or rigidity. SPINE: No scoliosis or deformity SKIN: No rashes CENTRAL NERVOUS SYSTEM: No focal deficits, tone is normal in all 4 extremities. EXTREMITIES: There is no peripheral edema, clubbing, or cyanosis. Peripheral pulses are intact. Results - Laboratory Findings CBC and BMP: 11/23/23 04:12 11/23/23 04:12 Abnormal lab findings: Abnormal Labs 11/22/23 11/23/23 11/23/23 07:08 04:12 04:12 RBC 3.76 L Hgb 12.5 L Hct 34.7 L Sodium 135 L Chloride 111 H AST 76 H ALT 68 H Assessment and Plan Plan: Acute alcohol withdrawal delirium tremens, requiring admission to the ICU and briefly on Precedex infusion. Precedex is currently paused, and the patient continues on the CIWA protocol. The patient is feeling much better at this point. He is awake and alert and he was taken off the Precedex. He required another dose of Ativan earlier this morning. 2 mg. He is alert and awake and communicating. Alcoholism History of chronic benzodiazepine intake and the patient has been taking Klonopin on an outpatient basis for many years and this medication was discontinued based on refusal of his primary care physician to refill the medication. There is obviously a component of benzodiazepine withdrawal in addition. Sinus bradycardia Tobacco dependence History of anxiety/depression History of bipolar disorder Plan: No need to keep the patient off Precedex Restart Klonopin 1 mg twice a day and will add another dose if needed Restart home medication including Remeron 15 mg at bedtime, Zoloft 150 mg p.o. daily and he also takes Vraylar 3 mg p.o. daily. Continue vitamin B1 replacement Protonix for GI prophylaxis Continue seizure precautions Currently being evaluated by inpatient psychiatry Patient will be monitored in the intensive care unit at least overnight.
[2023-11-23] MEDS: NICOTINE GUM (POLACRILEX) 2 MG GUM BUCCAL PRN (14:53)
[2023-11-23] MEDS: chlordiazePOXIDE 25 MG CAP PO SCH (15:56)
[2023-11-23] MEDS: clonazePAM 1 MG TAB PO PRN (20:15)
[2023-11-24 09:13] LABS: Basophils % (A) 1 %; Eosinophils # (A) 0.1 k/uL (0-0.7); Eosinophils % (A) 2 %; HCT 42.8 % (39.0-53.0); HGB 14.8 gm/dL (13.0-17.5); Lymphocytes # (A) 1.4 k/uL (1.0-4.8); Lymphocytes % (A) 26 %; MCH 31.5 pg (25.0-35.0); MCHC 34.7 g/dL (31.0-37.0); MCV 90.9 fL (80.0-100.0); Mean Platelet Volume 7.8; Monocytes # (A) 0.4 k/uL (0-1.0); Monocytes % (A) 7 %; Neutrophils # (A) 3.4 k/uL (1.3-7.7); Neutrophils % (A) 61 %; Platelet Count 284 k/uL (150-450); RBC 4.71 m/uL (4.30-5.90); RDW 12.5 % (11.5-15.5); WBC 5.6 k/uL (3.8-10.6)
[2023-11-24 09:28] LABS: African American GFR (CKD) >90 (>60 ml/min/1.73 sqM); Anion Gap 8 mmol/L; Blood Urea Nitrogen 7 mg/dL (9-20); Calcium 9.7 mg/dL (8.4-10.2); Carbon Dioxide 24 mmol/L (22-30); Chloride 108 mmol/L (98-107); Glucose 136 mg/dL (74-99); Non-African American GFR(CKD) >90 (>60 ml/min/1.73 sqM); Sodium 140 mmol/L (137-145)
--- NOTE | 2023-11-24 13:27 | P.PN ---
Subjective Progress Note Date: 11/24/23 This is [id number] male patient with known history ofAlcoholism and chronicBe nzodiazepine dependence as the patient has been taking Klonopin on outpatient basis 2 mg twice a day.The brain patientPatient drinks2 cases of beer and 1/5 of liquor on a daily basis. [facility] and he started having withdrawal symptoms. Based on that, the patient was brought into our hospital. He got moved to the intensive care unit as the patient has receiv ed a total of 12 mg of Ativan total. Overnight, the patient was started on Precedex dripTo control his agitation and restlessness. 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 Time of my evaluation, the patient seems to be calm and comfortable without having any significant agitation or restlessness.The patient was clinically stable and hemodynamically stable. The white cell count of 5.3 with a hemoglobin 12.5 and a platelet of 204.BUN 11 creatinine 0.9 and sodium levels at 140. No reported aspiration. No respiratory distress. No chest pain. Pulse ox 95% tOn room air oxygen. The patient also is having some benzodiazepine withdrawals. Is chronically depressed and he is taking a combination of Zoloft,Number onAnd Vraylar on outpatient basis. Psychiatric consultationHas been also requested. The patient remains in the intensive care unit. I am going to start him onKlonopin 1 mg twice a day. On 11/24/2023, the patient is doing well. No specific complaints. No anxiety. No tremors. No altered mentation. He is currently on Klonopin 1 mg p.o. twice daily. He is also on his antidepressant medications. No nausea. No vomiting. No chest pain. He is currently on room air oxygen. White cell count of 5.6 with a hemoglobin 14.8 and a platelet count of 284. BUN is at 7 with a creatinine of 0.9 and a sodium levels of 140. No fever. No chills. No other significant events otherwise. He was transferred out of the intensive care unit yesterday. Objective - Vital Signs Vital signs: Vital Signs Temp 98.6 F 11/24/23 09:00 Pulse 101 H 11/24/23 09:00 Resp 17 11/24/23 09:00 BP 135/75 11/24/23 09:00 Pulse Ox 98 11/24/23 09:00 FiO2 Intake & Output 11/23/23 11/24/23 11/24/23 18:59 06:59 18:59 Intake Total 1680 350 180 Output Total 2675 450 Balance -995 -100 180 Intake: Intake, IV Titration 380 Amount Sodium Chloride 0.9% 1, 380 000 ml @ 75 mls/hr IV . [id number] [facility] Rx#:[id number] Oral 600 350 180 Tube Feeding 700 Output: Urine 2675 450 Other: Voiding Method Urinal Urinal Urinal # Voids 1 - Exam GENERAL EXAM: Alert, 28-year-old white male, fairly comfortable in no apparent distress. HEAD: Normocephalic and atraumatic EYES: Normal reaction of pupils, equal size. NOSE: Clear with pink turbinates. THROAT: No erythema or exudates. NECK: No masses, no JVD. CHEST: No chest wall deformity. LUNGS: Equal air entry with no crackles, wheeze, rhonchi or dullness. On room air. No conversational dyspnea or accessory muscle use.. CVS: S1 and S2 normal with no audible murmur, regular rhythm. No extra heart sounds ABDOMEN: No hepatosplenomegaly, active bowel sounds, no guarding or rigidity. SPINE: No scoliosis or deformity SKIN: No rashes CENTRAL NERVOUS SYSTEM: No focal deficits, tone is normal in all 4 extremities. EXTREMITIES: There is no peripheral edema, clubbing, or cyanosis. Peripheral pulses are intact. - Labs CBC & Chem 7: 11/24/23 08:52 11/24/23 08:52 Labs: Abnormal Lab Results - Last 24 Hours (Table) 11/24/23 Range/Units 08:52 Chloride 108 H (98-107) mmol/L BUN 7 L (9-20) mg/dL Glucose 136 H (74-99) mg/dL Assessment and Plan Plan: Acute alcohol withdrawal delirium tremens, requiring admission to the ICU and briefly on Precedex infusion. Precedex is currently paused, and the patient continues on the CIWA protocol. The patient is recovered and the mental status is back to normal and there is no active tremors Alcoholism History of chronic benzodiazepine intake and the patient has been taking Kl onopin on an outpatient basis for many years and this medication was discontinued based on refusal of his primary care physician to refill the medication. There is obviously a component of benzodiazepine withdrawal in addition. The patient is currently on Klonopin 1 mg p.o. twice a day Sinus bradycardia Tobacco dependence History of anxiety/depression History of bipolar disorder Plan: Psychiatric input is appreciated Continue Klonopin 1 mg twice a day and will add another dose if needed Continue Remeron 15 mg at bedtime, Zoloft 150 mg p.o. daily and he also takes Vraylar 3 mg p.o. daily. Continue vitamin B1 replacement Protonix for GI prophylaxis Continue seizure precautions
--- NOTE | 2023-11-24 13:46 | P.PN ---
Subjective Progress Note Date: 11/24/23 Hospital Course: Patient is a 28-year-old male with a history of alcohol dependence presenting for acute alcohol withdrawal. In the ED, temperature was 98.1, pulse 88, respiratory rate 18, blood pressure 137/94, saturating at 98% on room air. WBC 8.3, hemoglobin 13.8, sodium 135, creatinine 1.02, total bili 0.8, AST 76, ALT 68, lipase 220. EKG shows sinus rhythm with occasional PACs. Patient received a total of 2 L of normal saline, IV thiamine, up to 9 mg of IV Ativan and continues to remain agitated. ICU was consulted. Patient transferred to ICU on Precedex drip for delirium tremens. Precedex drip was weaned off. Patient's withdrawal is controlled with standing Librium and Ativan as needed. For patient's pain control we added ibuprofen and recommended continuing Tylenol, avoid narcotics. Subjective: Patient seen and examined at bedside. No acute events overnight. Pertinent positives and negatives as discussed above, a complete review of systems was performed and all other systems are negative. Vitals Signs Reviewed. General: Nontoxic, no distress, appears at stated age Derm: Warm, dry Head: Atraumatic, normocephalic, symmetric Eyes: EOMI, no lid lag, anicteric sclera Mouth: No lip lesion, mucus membranes moist Cardiovascular: S1S2 reg, no murmur Lungs: CTA bilateral, no rhonchi, no rales, no accessory muscle use Abdominal: Soft, nontender to palpation, no guarding, no appreciable organomegaly Ext: No gross muscle atrophy, no edema, no contractures Neuro: CN II-XI grossly intact, no focal neuro deficits Psych: Alert, oriented, appropriate affect Data Reviewed Today: Pertinent Labs: WBC 5.6, hemoglobin 14.8, creatinine 0.98 Imaging: No new imaging Assessment and Plan: Delirium tremens Severe alcohol withdrawal Alcohol dependence Continue IV Ativan as needed per CIWA score Pulmonology note reviewed, patient continued on Klonopin 1 mg twice a day Further decrease Librium to 10 3 times daily, continue to taper Continue thiamine oral 100 mg daily Continue telemetry monitoring History of bipolar disorder History of PTSD Psychiatry consulted, patient restarted on Cariprazine 3 mg daily, Zoloft 150 daily, mirtazapine 15 at night Neck pain -Tylenol as needed -Ibuprofen as needed -Heat pads GERD Continue home pantoprazole 40 twice daily DVT ppx: Lovenox Code status: Full code Anticipated discharge place: Home Anticipated discharge time: Likely tomorrow Objective - Vital Signs Vital signs: Vital Signs Temp 98.6 F 11/24/23 09:00 Pulse 93 11/24/23 11:50 Resp 18 11/24/23 11:50 BP 131/87 11/24/23 11:50 Pulse Ox 94 L 11/24/23 11:50 FiO2 Intake & Output 11/23/23 11/24/23 11/24/23 18:59 06:59 18:59 Intake Total 1680 350 180 Output Total 2675 450 Balance -995 -100 180 Intake: Intake, IV Titration 380 Amount Sodium Chloride 0.9% 1, 380 000 ml @ 75 mls/hr IV . [id number] [facility] Rx#:[id number] Oral 600 350 180 Tube Feeding 700 Output: Urine 2675 450 Other: Voiding Method Urinal Urinal Urinal # Voids 1 - Labs CBC & Chem 7: 11/24/23 08:52 11/24/23 08:52 Labs: Abnormal Lab Results - Last 24 Hours (Table) 11/24/23 Range/Units 08:52 Chloride 108 H (98-107) mmol/L BUN 7 L (9-20) mg/dL Glucose 136 H (74-99) mg/dL
--- NOTE | 2023-11-24 15:27 | P.PN ---
Progress Note - Text Progress Note Date: 11/24/23 Interval history: Patient was seen today for psychiatric follow-up. Patient claims that his wit hdrawals are doing better today, states that he feels less shaky. Claims that he was feeling confused when he came into the hospital and states that he was not able to stay at [place]. He states that he does not want to go back to [place] once he is out of the hospital. He claims that he does feel a bit restless being in the hospital and drank "7 cups of coffee". He was agreeable to try naltrexone and also Depakote. We spoke about his other medications he asked questions which are appropriate. He seems to be fairly directable, not hyperverbal. No racing thoughts or flight of ideas. States that his mood is "better" and denies any anxiety at this time. States that he had difficulty sleeping last night. At this time he is denying any auditory or visual hallucinations. Denying any suicidal homicidal ideations intent or plan. Mental status examination: General Appearance: Patient appears to be stated age is alert, cooperative. Patient appears to have improving hygiene and grooming wearing hospital gown with good eye contact. Numerous piercings Behavior: Psychomotor less anxiety, standing in his room. Speech: Patient's speech is fluent and nonpressured. Mood/Affect: Patient reports their mood is "better", affect is improving Suicidality/Homicidality: Patient denies having any suicidal or homicidal ideation intent or plan. Perceptions: Patient is not responding to internal stimuli today. Denies any auditory or visual hallucinations. Though content/process: More appropriate, goal oriented. No delusions. Memory and concentration: AOX3, improved attention span. Judgment and insight: Improving mildly IMPRESSIONS: Alcohol use disorder, severe dependence Cannabis use disorder, severe Nicotine dependence Bipolar disorder Generalized anxiety disorder Hx ADHD PLAN: -At this time patient does not meet criteria for inpatient psychiatric care. -Patient DOES NOT have decision making capacity at this time and is unable to reason through and communicate/appreciate the risks, benefits and alternatives to treatment. -Would recommend the following medication changes/additions: Added Depakote 500 mg nightly for mood stabilization. Added naltrexone 50 mg p.o. daily for alcohol cravings. Resume Vraylar 3 mg daily Resume Remeron 15 mg qHS for sleep, mood, appetite Decreased Zoloft to 100 mg daily for mood/anxiety. -Continue to titrate Librium off last dose tomorrow. -CIWA protocol with PRN Ativan for alcohol withdrawal. Continue to monitor vital signs. On thiamin replacement -research worker kitchen to provide patient with outpatient mental health/psychiatry resources for appropriate follow up upon discharge -research worker kitchen to provide patient substance use treatment resources including AA/NA meetings in the community. Patient claims that he is not interested in going back to rehab at this time. -Communicated plan to patient's nurse -This time psychiatry will sign off. -Please contact with any questions.
[2023-11-24] MEDS: NALTREXONE HCL 50 MG TAB PO SCH (16:13)
[2023-11-24] MEDS: DIVALPROEX ER 500 MG TAB.ER.24H PO STA (16:13)
[2023-11-24] MEDS: DIVALPROEX ER 500 MG TAB.ER.24H PO SCH (20:00)
[2023-11-25] MEDS: SERTRALINE 100 MG TAB PO SCH (08:30)
[2023-11-25 10:29] VITALS: BP 110/81; PULSE 104; RESP 18; TEMP 98.2
--- NOTE | 2023-11-25 11:31 | P.DS ---
Providers Date of admission: 11/22/23 12:05 Expected date of discharge: 11/25/23 Attending physician: Franc Baig MD Consults: 11/22/23 11:08 Consult Physician Routine Consulting Provider: Aidan Solis Consult Reason/Comments: Bipolar disorder Do you want consulting provider notified?: Yes 11/22/23 12:35 Consult Physician Routine Consulting Provider: David Jacobson Consult Reason/Comments: ICU Do you want consulting provider notified?: Already Contacted Primary care physician: Stated None Hospital Course: Discharge Diagnosis: Delirium tremens Severe alcohol withdrawal Alcohol dependence History of bipolar disorder History of generalized anxiety disorder History of PTSD GERD Neck pain Hospital Course: Patient is a 28-year-old male with a history of alcohol dependence presenting for acute alcohol withdrawal. In the ED, temperature was 98.1, pulse 88, respiratory rate 18, blood pressure 137/94, saturating at 98% on room air. WBC 8.3, hemoglobin 13.8, sodium 135, creatinine 1.02, total bili 0.8, AST 76, ALT 68, lipase 220. EKG shows sinus rhythm with occasional PACs. Patient received a total of 2 L of normal saline, IV thiamine, up to 9 mg of IV Ativan and continues to remain agitated. ICU was consulted. Patient transferred to ICU on Precedex drip for delirium tremens. Precedex drip was weaned off. Patient's withdrawal is controlled with standing Librium and Ativan as needed. Psychiatry also consulted. For bipolar disorder and generalized anxiety disorder, patient started on Depakote. Also started on naltrexone for alcohol use. Continued on vraylar and Remeron, Zoloft decreased. Patient being discharged home, follow-up outpatient with psychiatry. Patient seen and examined at bedside. Vital signs reviewed and stable. General: Nontoxic, no distress, appears at stated age Derm: Warm, dry Head: Atraumatic, normocephalic, symmetric Eyes: EOMI, no lid lag, anicteric sclera Mouth: No lip lesion, mucus membranes moist Cardiovascular: S1S2 reg, no murmur Lungs: CTA bilateral, no rhonchi, no rales, no accessory muscle use Abdominal: Soft, nontender to palpation, no guarding, no appreciable organomegaly Ext: No gross muscle atrophy, no edema, no contractures, mild extension tremor Neuro: CN II-XI grossly intact, no focal neuro deficits Psych: Alert, oriented, appropriate affect A total of 33 minutes of time were spent preparing this complex discharge summary. Patient was discharged on 11/25/2023 at 959. Patient Condition at Discharge: Stable Plan - Discharge Summary Discharge Rx Participant: No New Discharge Prescriptions: New Sertraline [Zoloft] 100 mg PO DAILY #30 tab Divalproex ER [Depakote ER] 500 mg PO HS #30 tab Naltrexone HCl [Revia] 50 mg PO DAILY #30 tab Continue Cariprazine HCl [Vraylar] 3 mg PO DAILY Acetaminophen [Tylenol] 650 mg PO Q4H PRN PRN Reason: Fever And/ Or Pain Thiamine [Vitamin B-1] 100 mg PO DAILY Multivitamins, Thera [Multivitamin (formulary)] 1 tab PO DAILY Melatonin 5 mg PO HS Calcium/Magnesium/Zinc/Vitamin D 334/134/5mg 1 tab PO TID PRN PRN Reason: Muscle cramps Mirtazapine [Remeron] 15 mg PO HS Pantoprazole [Protonix] 40 mg PO BID Discontinued Mag Hydrox/Aluminum Hyd/Simeth [Mylanta Maximum Strength Liq] 30 ml PO Q4H PRN PRN Reason: Gi Upset Magnesium Hydroxide [Milk of Magnesia] 2,400 mg PO BID PRN PRN Reason: Constipation Hyoscyamine Sulfate [Levsin] 0.125 mg PO QID PRN PRN Reason: Gi Upset guaiFENesin [guaiFENesin Oral Solution] 200 mg PO Q4H PRN PRN Reason: Cough LORazepam [Ativan] 1 - 2 mg PO Q4H PRN PRN Reason: Alcohol Withdrawal Meloxicam [Mobic] 7.5 - 15 mg PO DAILY PRN PRN Reason: Pain Dicyclomine [Bentyl] 20 mg PO TID PRN PRN Reason: Gi Upset Propranolol [Inderal] 20 mg PO TID PRN PRN Reason: Blood Pressure ondansetron HCL [Zofran] 8 mg PO Q6H PRN PRN Reason: Nausea And Vomiting Loperamide HCl [Imodium A-D] 4 mg PO QID PRN PRN Reason: Diarrhea Chlorpheniramine Maleate [Chlor-Trimeton] 4 mg PO Q4H PRN PRN Reason: Allergy Symptoms cloNIDine HCL [Catapres] 0.1 - 0.3 mg PO Q4H PRN PRN Reason: BP greater than 160/100 Sertraline [Zoloft] 150 mg PO DAILY Discharge Medication List Acetaminophen [Tylenol] 650 mg PO Q4H PRN 11/22/23 [History] Calcium/Magnesium/Zinc/Vitamin D 334/134/5mg 1 tab PO TID PRN 11/22/23 [History] Cariprazine HCl [Vraylar] 3 mg PO DAILY 11/22/23 [History] Melatonin 5 mg PO HS 11/22/23 [History] Mirtazapine [Remeron] 15 mg PO HS 11/22/23 [History] Multivitamins, Thera [Multivitamin (formulary)] 1 tab PO DAILY 11/22/23 [History] Pantoprazole [Protonix] 40 mg PO BID 11/22/23 [History] Thiamine [Vitamin B-1] 100 mg PO DAILY 11/22/23 [History] Divalproex ER [Depakote ER] 500 mg PO HS #30 tab 11/25/23 [Rx] Naltrexone HCl [Revia] 50 mg PO DAILY #30 tab 11/25/23 [Rx] Sertraline [Zoloft] 100 mg PO DAILY #30 tab 11/25/23 [Rx] Follow up Appointment(s)/Referral(s): None,Stated [Primary Care Provider] - 1-2 days Activity/Diet/Wound Care/Special Instructions: Please see psychiatry. Discharge/Stand Alone Forms: AA Meetings [place], Outpatient Counseling, In Substance Abuse Facilities Discharge Disposition: HOME SELF-CARE
--- NOTE | 2023-11-25 18:05 | P.PN ---
Subjective Progress Note Date: 11/25/23 This is [id number] male patient with known history ofAlcoholism and chronicBe nzodiazepine dependence as the patient has been taking Klonopin on outpatient basis 2 mg twice a day.The brain patientPatient drinks2 cases of beer and 1/5 of liquor on a daily basis. [facility] and he started having withdrawal symptoms. Based on that, the patient was brought into our hospital. He got moved to the intensive care unit as the patient has receiv ed a total of 12 mg of Ativan total. Overnight, the patient was started on Precedex dripTo control his agitation and restlessness. 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 Time of my evaluation, the patient seems to be calm and comfortable without having any significant agitation or restlessness.The patient was clinically stable and hemodynamically stable. The white cell count of 5.3 with a hemoglobin 12.5 and a platelet of 204.BUN 11 creatinine 0.9 and sodium levels at 140. No reported aspiration. No respiratory distress. No chest pain. Pulse ox 95% tOn room air oxygen. The patient also is having some benzodiazepine withdrawals. Is chronically depressed and he is taking a combination of Zoloft,Number onAnd Vraylar on outpatient basis. Psychiatric consultationHas been also requested. The patient remains in the intensive care unit. I am going to start him onKlonopin 1 mg twice a day. On 11/24/2023, the patient is doing well. No specific complaints. No anxiety. No tremors. No altered mentation. He is currently on Klonopin 1 mg p.o. twice daily. He is also on his antidepressant medications. No nausea. No vomiting. No chest pain. He is currently on room air oxygen. White cell count of 5.6 with a hemoglobin 14.8 and a platelet count of 284. BUN is at 7 with a creatinine of 0.9 and a sodium levels of 140. No fever. No chills. No other significant events otherwise. He was transferred out of the intensive care unit yesterday. On today's evaluation of 11/25/2023, the patient has no specific complaints. No significant anxiety. He has chronic depression. Medication remains unchanged. Clinically stable and hemodynamically stable. The patient otherwise has no spe cific complaints. As mentioned, he had delirium tremens from which she has recovered. He has history of chronic alcoholism. He has also chronic benzodiazepine dependence. Psychiatry was consulted during this course of his admission. The patient was started also on Depakote. He was also started on naltrexone for alcohol use. He will be continued on a combination of Remeron, and Vraylar. Zoloft was discontinued. No new labs are available from today. Objective - Vital Signs Vital signs: Vital Signs Temp 98.1 F 11/25/23 03:45 Pulse 72 11/25/23 03:45 Resp 19 11/25/23 03:45 BP 113/78 11/25/23 03:45 Pulse Ox 99 11/25/23 03:45 FiO2 Intake & Output 11/24/23 11/25/23 11/25/23 18:59 06:59 18:59 Intake Total 540 180 Balance 540 180 Intake: Oral 540 180 Other: Voiding Method Urinal Toilet # Voids 2 - Exam GENERAL EXAM: Alert, 28-year-old white male, fairly comfortable in no apparent distress. HEAD: Normocephalic and atraumatic EYES: Normal reaction of pupils, equal size. NOSE: Clear with pink turbinates. THROAT: No erythema or exudates. NECK: No masses, no JVD. CHEST: No chest wall deformity. LUNGS: Equal air entry with no crackles, wheeze, rhonchi or dullness. On room air. No conversational dyspnea or accessory muscle use.. CVS: S1 and S2 normal with no audible murmur, regular rhythm. No extra heart sounds ABDOMEN: No hepatosplenomegaly, active bowel sounds, no guarding or rigidity. SPINE: No scoliosis or deformity SKIN: No rashes CENTRAL NERVOUS SYSTEM: No focal deficits, tone is normal in all 4 extremities. EXTREMITIES: There is no peripheral edema, clubbing, or cyanosis. Peripheral pulses are intact. - Labs CBC & Chem 7: 11/24/23 08:52 11/24/23 08:52 Assessment and Plan Plan: Acute alcohol withdrawal delirium tremens, requiring admission to the ICU and briefly on Precedex infusion. Precedex is currently paused, and the patient continues on the CIWA protocol. The patient is recovered and the mental status is back to normal and there is no active tremors Alcoholism History of chronic benzodiazepine intake and the patient has been taking Klonopin on an outpatient basis for many years and this medication was discontinued based on refusal of his primary care physician to refill the medication. There is obviously a component of benzodiazepine withdrawal in addition. The patient is currently on Klonopin 1 mg p.o. twice a day Sinus bradycardia Tobacco dependence History of anxiety/depression History of bipolar disorder Plan: The patient is clinically stable and the patient will be discharged home today. Psychiatric input is appreciated Depakote was added to his regimen Continue Remeron 15 mg at bedtime, Vraylar 3 mg p.o. daily. The Zoloft was discontinued Continue vitamin B1 replacement Protonix for GI prophylaxis Continue seizure precautions Cleared for discharge from a pulmonary standpoint.
== END 2023-11-25 12:22 | disposition home or self-care (01) | DRG 775 ==
LOC: EC 06:55 → 2SICU 12:05 → 3SCARD 11-24 00:15
PROVIDERS: ADMIT Internal Medicine; ATTEND Internal Medicine
DX: F10.231 Alcohol dependence with withdrawal delirium (principal); F12.20 Cannabis dependence, uncomplicated; F17.200 Nicotine dependence, unspecified, uncomplicated; F13.239 Sedative, hypnotic or anxiolytic dependence with withdrawal, unspecified; F22 Delusional disorders; F31.9 Bipolar disorder, unspecified; F41.1 Generalized anxiety disorder; F43.10 Post-traumatic stress disorder, unspecified; K21.9 Gastro-esophageal reflux disease without esophagitis; I49.1 Atrial premature depolarization; R19.09 Other intra-abdominal and pelvic swelling, mass and lump; Z79.899 Other long term (current) drug therapy; R45.1 Restlessness and agitation; M54.2 Cervicalgia; F90.9 Attention-deficit hyperactivity disorder, unspecified type
CPT/HCPCS: 36415; 80048; 80053; 83690; 83735; 85025; 93005; 96365; 96366; 96375; 96376; 99285